=== PATIENT | male | born 1965 | race Caucasian/White ===

== ENCOUNTER 2025-05-18 12:30 | Emergency (ER) | payer OTHER, SELFPAY ==
[2025-05-18 13:03] VITALS: BP 157/80; PULSE 54; RESP 16; TEMP 36.1; O2SAT 100; BMI 25.0
--- NOTE | 2025-05-18 13:20 | ED.GENADULT ---
HPI - General Adult General Chief complaint: General Medical Stated complaint: rash 3 weeks Time Seen by Provider: 05/18/25 13:13 Source: patient and RN notes reviewed Mode of arrival: ambulatory Limitations: no limitations History of Present Illness ED Provider: Nesha Chadwick PA-C [facility] narrative: This is a 59-year-old male who presents emergency department with concerns of rash for the last 3 weeks. Patient reports that the rash is itchy. Has been using [id number] Benadryl cream without any relief. He states that he recently traveled to [place] and was in 2 different hotels, unsure if this exposed him to any unusual detergents. He states that he wash all his clothing, and feels as though the rash has improved however continues to linger. Denies any difficulty swallowing or breathing. He is otherwise feeling well. No other complaints or concerns at this time. MD complaint: Rash Onset (ago): week(s) Radiation: non-radiation Relieving factors: none Exacerbating factors: none Associated symptoms: denies other symptoms Treatments prior to arrival: none Related Data Previous Rx's ?Medication ?Instructions ?Recorded prednisone 20 mg tablet 40 mg (2 x 20 mg) PO DAILY 5 days 05/18/25 #10 tabs Allergies Allergy/AdvReac Type Severity Reaction Status Date / Time No Known Allergies Allergy Verified 05/18/25 13:07 Review of Systems Review of Systems: Constitutional : No Fever, No Chills ENT/Mouth : No sore throat, No Rhinorrhea Eyes: No Eye Pain, No Swelling, No Redness Cardiovascular : No Chest Pain, No SOB Respiratory : No Cough, No Sputum Gastrointestinal : No Nausea, No Vomiting, No Diarrhea, No abdominal Pain Genitourinary : No Dysuria, No Hematuria Musculoskeletal : No joint pain, No Myalgias, No Joint Swelling Skin : No Skin Lesions, positive skin rash Neuro : No Weakness, No Numbness, No Headache All other systems reviewed and are negative Yes all other systems are reviewed and are negative Constitutional: Constitutional: Reports as per [facility] Social History Social History Advance Directives: No Advance Directives Information Provided: Yes Do you have a plan to hurt others: No Plan Physical Exam ED Exam Exam: General: Awake, alert, and oriented X3. No acute distress. HEENT: Normal inspection CVS: Normal heart rate and rhythm. Pulses normal. Respiratory: No respiratory distress Skin: Diffuse maculopapular rash noted throughout the extremities and trunk, no surrounding erythema or warmth. Extremities: Normal to inspection Neuro: Oriented X 3. No motor deficit. No sensory deficit. Vital Signs: Vital Signs - 24 hr 05/18/25 13:03 05/18/25 13:54 Temperature 97 F 97 F Pulse Rate 54 54 Respiratory Rate 16 16 Blood Pressure 157/80 H 157/80 H Pulse Oximetry 100 100 Oxygen Delivery Method Room Air Room Air BMI result Body Mass Index 25.0 Medical Decision Making Medical Decision Making [facility] Narrative: This is a 59-year-old male who presents emergency department with complaints of generalized rash for the last 3 weeks, may have been exposed to a detergent while he was traveling. On arrival, vital signs within normal limits. He has no wheezing, no airway compromise. Symptoms likely allergic in etiology. Other differential diagnoses include atopic dermatitis, insect bites, cellulitis. Physical exam consistent with contact dermatitis. Will trial prednisone. Given strict return precautions. He will follow-up with his PCP. Patient understands and agrees with plan. Patient stable for discharge Differential Diagnosis Differential Diagnoses: The differential diagnosis associated with the presentation includes See above Discharge Plan Discharge Clinical Impression: Contact dermatitis, Rash Patient Disposition: Home, Self-Care Instructions: Contact Dermatitis (ED), Acute Rash (ED) Additional Instructions: You were seen in the emergency department due to a rash. It is unclear what is causing you to have this rash however this could be something that you exposure self to that you are allergic to. We are treating you with a course of prednisone, finish the entire course even if your symptoms improve. If any new or worsening symptoms occur including but not limited to difficulty swallowing, breathing, please seek emergent care. Prescriptions: New prednisone 20 mg tablet 40 mg PO DAILY 5 Days Qty: 10 0RF Interventions: ED Discharge Assessment Last Done: 05/18/25 13:54 Discharge Date/Time: 05/18/25 13:55 Print Language: [place]
[2025-05-18 13:54] VITALS: BP 157/80; PULSE 54; RESP 16; TEMP 36.1; O2SAT 100
== END 2025-05-18 13:55 | disposition home or self-care (01) ==
PROVIDERS: Emergency Provider Emergency Medicine Emergency Medical Services
DX: L25.9 Unspecified contact dermatitis, unspecified cause (principal); R21 Rash and other nonspecific skin eruption
CPT/HCPCS: 99282